=== PATIENT | female | born 1970 | race Two or more races ===

== ENCOUNTER 2019-12-30 13:34 | Emergency (ER) | payer OTHER, SELFPAY ==
[~2019-12-30] VITALS: Ht 165.1 cm; Wt 64.0 kg
[2019-12-30 13:42] VITALS: BP 147/80
== END 2019-12-30 14:45 | disposition home or self-care (01) ==
LOC: ER 13:34
DX: Z03.818 Encounter for observation for suspected exposure to other biological agents ruled out (principal)
CPT/HCPCS: 87635; 99283; C9803; 99281